=== PATIENT | male | born 1955 | race Caucasian/White ===

== ENCOUNTER 2016-11-12 09:20 | Day surgery (SDC) | payer OTHER ==
[2016-11-12 11:27] VITALS: RESP 20; TEMP 97
[2016-11-12 11:28] VITALS: BP 135/69; PULSE 69; O2SAT 97
== END 2016-11-12 11:40 | disposition home or self-care (01) | DRG 951 ==
LOC: SURG 09:20
PROVIDERS: ATTEND Surgery
DX: Z12.11 Encounter for screening for malignant neoplasm of colon (principal); K57.30 Diverticulosis of large intestine without perforation or abscess without bleeding; Z86.010 Personal history of colon polyps; K62.1 Rectal polyp
CPT/HCPCS: 99001; J2001; J2704

== ENCOUNTER 2017-01-25 21:28 | Emergency (ER) | payer OTHER ==
[2017-01-25] MEDS ORDERED: HYDROMORPHONE 1 MG/ML SYRINGE ONE (21:39)
[2017-01-25] MEDS ORDERED: LIDOCAINE HCL 2% MPF SOL ONE ×2 (21:39→22:22)
[2017-01-25] MEDS ORDERED: ONDANSETRON HCL 4 MG/2 ML SOL ONE (21:45)
[2017-01-25] MEDS ORDERED: HYDROMORPHONE HCL 2 MG/ML SOL IV ONE (21:45)
[2017-01-25] MEDS ORDERED: ONDANSETRON HCL 4 MG/2 ML SOL IV ONE (21:48)
[2017-01-25] MEDS ORDERED: CEFAZOLIN SODIUM 1 GM PDS 1 GM in SODIUM CHLORIDE 0.9% 100 ML 100 ML IV SCH (23:00)
[2017-01-25] MEDS ORDERED: CEFAZOLIN SODIUM 1 GM PDS ONE (23:00)
[2017-01-25] MEDS ORDERED: APAP/OXYCODONE 325/5 TAB PO ONE (23:08)
[2017-01-25 23:28] VITALS: RESP 18; TEMP 98
[2017-01-25 23:40] VITALS: BP 147/85; PULSE 95; O2SAT 95
[2017-01-25] MEDS ORDERED: APAP/OXYCODONE 325/5 TAB ONE (23:42)
== END 2017-01-25 23:55 | disposition home or self-care (01) ==
LOC: ED 21:28
DX: S62.631A Displaced fracture of distal phalanx of left index finger, initial encounter for closed fracture (principal); S62.635A Displaced fracture of distal phalanx of left ring finger, initial encounter for closed fracture; S61.313A Laceration without foreign body of left middle finger with damage to nail, initial encounter; S61.211A Laceration without foreign body of left index finger without damage to nail, initial encounter; S61.215A Laceration without foreign body of left ring finger without damage to nail, initial encounter; W31.2XXA Contact with powered woodworking and forming machines, initial encounter
CPT/HCPCS: 64450; 73130; 99285; J0690; J1170; J2405; 96365; 96374; 96375; A6402; A6446

== ENCOUNTER 2017-04-09 09:20 | Outpatient (CLI) | payer OTHER ==
[2017-01-25 23:40] VITALS: O2SAT 95
== END 2017-04-09 09:21 | disposition home or self-care (01) ==
LOC: CONVCARE 09:20
PROVIDERS: ATTEND Orthopaedic Surgery
DX: S62.631D Displaced fracture of distal phalanx of left index finger, subsequent encounter for fracture with routine healing (principal); S62.633D Displaced fracture of distal phalanx of left middle finger, subsequent encounter for fracture with routine healing; S62.635D Displaced fracture of distal phalanx of left ring finger, subsequent encounter for fracture with routine healing
CPT/HCPCS: 73140